=== PATIENT | female | born 1960 | race Caucasian/White ===

== ENCOUNTER 2020-03-18 13:29 | Inpatient (IN) | payer OTHER, MEDICAID ==
[2020-03-18] VITALS (12 sets, daily range): BP systolic 101–185; BP diastolic 56–91
[~2020-03-18] VITALS: Ht 157.5 cm; Wt 94.3 kg
[2020-03-18] MEDS ORDERED: TOPI100T8 PO (14:12)
[2020-03-18] MEDS ORDERED: CLON0.5T PO (14:12)
[2020-03-18] MEDS ORDERED: LEVO25TA4 PO (14:12)
[2020-03-18] MEDS ORDERED: ESCITALOPRAM OX10 MG PO (14:12)
[2020-03-18] MEDS ORDERED: GABA300C18 PO (14:12)
[2020-03-18] MEDS ORDERED: ASPI-630 PO (14:12)
[2020-03-18] MEDS ORDERED: ONDANSETRON PF 4 MG/2 ML VIAL. IVP PRN (14:15)
[2020-03-18] MEDS ORDERED: fentaNYL PF VIAL 100 MCG/2 ML VIAL IVP PRN (14:15)
[2020-03-18] MEDS ORDERED: ALBUTEROL SULFATE 2.5 MG/3 ML NEBU. NEB PRN (14:30)
[2020-03-18] MEDS ORDERED: LIDOCAINE 1% PF 2 ML VIAL. ONE (14:52)
[2020-03-18] MEDS ORDERED: IOHEXOL 300 MG/ML 100ML VIAL. ONE (14:52)
[2020-03-18] MEDS ORDERED: fentaNYL PF VIAL 100 MCG/2 ML VIAL ONE (15:21)
[2020-03-18] MEDS ORDERED: HEPARIN for IV BOLUS 10,000 UNIT/10 ML VIAL. ONE (15:21)
[2020-03-18] MEDS ORDERED: NITROGLYCERIN 200 MCG/2 ML SYRINGE FOR CATH/VASC LAB. ONE (15:21)
[2020-03-18] MEDS ORDERED: MIDAZOLAM HCL/PF 2 MG/2 ML VIAL. ONE (15:21)
[2020-03-18] MEDS ORDERED: VERAPAMIL 5 MG/2 ML VIAL. ONE (15:21)
[2020-03-18] MEDS ORDERED: fentaNYL PF VIAL 100 MCG/2 ML VIAL IV ONE (15:45)
[2020-03-18] MEDS ORDERED: IOHEXOL 300 MG/ML 100ML VIAL. IART ONE (15:45)
[2020-03-18] MEDS ORDERED: HEPARIN for IV BOLUS 10,000 UNIT/10 ML VIAL. IART ONE (15:45)
[2020-03-18] MEDS ORDERED: CONTRAST GIVEN. MC PRN (15:45)
[2020-03-18] MEDS ORDERED: LIDOCAINE 1% PF 2 ML VIAL. INJ ONE (15:45)
[2020-03-18] MEDS ORDERED: VERAPAMIL 5 MG/2 ML VIAL. IART ONE (15:45)
[2020-03-18] MEDS ORDERED: NITROGLYCERIN 200 MCG/2 ML SYRINGE FOR CATH/VASC LAB. IART ONE (15:45)
[2020-03-18] MEDS ORDERED: MIDAZOLAM HCL/PF 2 MG/2 ML VIAL. IV ONE (15:45)
--- NOTE | 2020-03-18 16:58 | CARD ---
MR#: [id number] Date of Study: 03/18/2020 Ordering Physician: UNRULY OSWALD, Referring Physician: UNRULY OSWALD, Tech: RT Amber (R) APPROVED REPORT Technologist: Palomo Link RT (R) Nurse: Kellee Chavez R.N. Procedure(s) performed: FL TIME: 3.8 MINS DOSE: 66 GYCM2 CONTRAST: 69 ML MODERATE SEDATION: 29 MINS LHC, Coronary angiography HISTORY : The patient is a 59 year-old female with a history of . INDICATION The indication(s) include : unstable angina . [facility] Clinical Frailty Scale [facility] Clinical Frailty Scale: Mildly Frail Heart Failure Heart Failure: Yes If Yes, Newly Diagnosed: No If Yes, HF Type: Diastolic If Yes, NYHA Class: Class II PROCEDURE NARRATIVE Clinical information: 59-year-old woman who presents to the hospital in the setting of unstable angina with recurrent chest pain within 1 week in the setting of prior history of hypertension, tobacco abuse. Informed consent: Written informed consent was obtained from the patient after adequate discussion of the risks and latricia efits of the procedure. Procedure details: ACCESS: The right wrist was prepped and draped in usual sterile fashion. Under 1% lidocaine local anesthesia a 6 Austrian Terumo sheath was placed in the right radial artery via the Seldinger technique. DIAGNOSTIC ANGIOGRAPHY: Right and left coronary arteries were engaged with a 6 Austrian TIG catheter. Diagnostic angiography i n multiple views were obtained. Next, a 6 Austrian pigtail catheter was placed in the left ventricle a nd a LVEDP was measured. A pullback was performed after left ventriculography. All catheters were e xchanged over J-tip guidewire. FINDINGS: ======= Aorta: 110/80 LVEDP: 15 mmHg Left ventriculogram: Ejection fraction 55% Normal wall motion without any evidence of aortic or mitral insufficiency. Coronary angiography: LM: Large caliber vessel with normal angiographic appearance LAD: Large caliber vessel with a proximal 50% stenosis. The vessel is also very tortuous D1: Small caliber vessel with normal angiographic appearance LCX: Moderate caliber non-dominant vessel with mild luminal irregularities OM1: Moderate caliber vessel with normal angiographic appearance RCA: Large caliber dominant vessel with mild luminal irregularities RPDA: Moderate caliber vessel with mild luminal irregularities. CLOSURE: At case completion the right radial sheath was removed and a Terumo radial band was applied with 11 m L of air. Hemostasis was achieved. COMPLICATIONS: No acute complications noted Conclusion 1. Normal left sided filling pressures. 2. Normal LV systolic function. EF 55% 3. One vessel CAD involving the LAD without significant obstruction. Recommendations Aggressive Medical Therapy Signed by : Unruly Oswald, Electronically Approved : 03/18/2020 16:58:06
[2020-03-18 17:16] LABS: CALCIUM 8.8 mg/dL (8.5-10.1); CREATININE 0.6 mg/dL (0.6-1.0); GFR 102.7; POTASSIUM 4.2 mmol/L (3.5-5.1)
[2020-03-18 17:24] LABS: CHOLESTEROL/HDL RATIO 2.8
[2020-03-18] MEDS ORDERED: TOPIRAMATE 100 MG TABLET. PO SCH (21:00)
[2020-03-18] MEDS ORDERED: GABAPENTIN 300 MG CAPSULE. PO SCH (21:00)
[2020-03-18] MEDS ORDERED: ATORVASTATIN CALCIUM 20 MG TABLET PO SCH (21:00)
[2020-03-19 02:50] VITALS: BP 127/49
[2020-03-19 07:00] VITALS: BP 133/62
[2020-03-19] MEDS ORDERED: LEVOTHYROXINE 25 MCG TABLET. PO SCH (07:30)
[2020-03-19] MEDS ORDERED: PANTOPRAZOLE 40 MG TABLET.DR. PO SCH (07:30)
[2020-03-19] MEDS ORDERED: clonazePAM 0.5 MG TABLET PO SCH (09:00)
[2020-03-19] MEDS ORDERED: ASPIRIN CHEWABLE 81 MG TABLET. PO SCH (09:00)
[2020-03-19] MEDS ORDERED: CITALOPRAM 20 MG TABLET. PO SCH (09:00)
--- NOTE | 2020-03-19 09:16 | NUR ---
SS following for discharge planning. SS reviewed pt chart and discussed with pt RN. Pt is from home and is currently on room air. Pt had heart cath on 03/18/2020. Discharge plan is to home when medically ready. SS will continue to follow for discharge planning.
--- NOTE | 2020-03-19 10:48 | SSS ---
ADMIT DATE: HISTORY OF PRESENT ILLNESS: The patient is a 59-year-old female patient, who was admitted twice to [facility] complaining of chest pain that is retrosternal, radiating through and through to her back. She was admitted initially and has 2 sets of cardiac enzymes that ruled out myocardial infarction. She was discharged home, only to come back with the same complaint. In the Emergency Room, she had CT angio of the chest, which showed no pulmonary emboli and no acute abnormalities seen throughout the chest to account for the patient's symptoms. The partially imaged gallbladder is distended and there is suggestion of pericholecystic edema and she did have abdominal ultrasound, which showed no evidence of gallbladder thickening or polycystic fluid. CT scan of the chest also showed that there is extensive calcification of the coronary arteries with redirection from the left anterior descending artery and therefore, she was seen in consultation by the b2b appointment setter who recommended transferring her to [facility] for cardiac catheterization. She underwent left heart cardiac catheterization and she was found to have normal left-sided filling pressure, normal left ventricular systolic function, ejection fraction 55%, one vessel coronary artery disease involving the left anterior without significant obstruction and therefore, a decision was made to treat her aggressively medically and was discharged home to follow with her primary care physician. PAST MEDICAL HISTORY: Significant for hypothyroidism, chronic obstructive pulmonary disease, and generalized osteoarthritis. FAMILY HISTORY: Unremarkable. ALLERGIES: She has no known drug allergies. MEDICATIONS: She is currently on following medications: She is on citalopram hydrobromide 20 mg once a day, clonazepam 0.25 mg once a day, aspirin 81 mg once a day, levothyroxine 25 mcg once a day, Protonix 40 mg once a day, topiramate 100 mg once a day, gabapentin 300 mg at bedtime, atorvastatin 20 mg at bedtime. FAMILY HISTORY: She has 1 sister and 2 brothers. The younger one of her brothers has leukemia, in remission. She does not know the age or the cause of of her father. Her mother at age of 59 because of complication of diabetes and COPD. SOCIAL HISTORY: She is single, never , has no children. She does smoke about half a pack a day and drinks alcohol occasionally, has not used any marijuana for a long time. She is currently on disability. PHYSICAL EXAMINATION: GENERAL: On examining her, she looked well and was clearly in no apparent respiratory distress. No pallor, jaundice, cyanosis or thyromegaly. No jugular venous distention. No lower limb edema. VITAL SIGNS: Her heart rate was 57, blood pressure was 133/62, temperature 97.7, respiratory rate was 18 and oxygen saturation was 96%. HEAD, EYES, EARS, NOSE AND THROAT: Showed normocephalic, atraumatic. NECK: Supple. HEART: Showed normal first and second heart sounds. No gallop, rub or murmur. CHEST: Clear to auscultation. No crepitation or rhonchi. ABDOMEN: Distended, soft, nontender. No guarding or rigidity. No organomegaly. All hernial orifices are intact. Bowel sounds normal. NEUROLOGIC: She was awake, alert, responding appropriately. All her cranial nerves are intact. EXTREMITIES: She moves extremities without difficulty. She ambulates without assistance or assistive devices. LABORATORY DATA: Her lab work showed her serum sodium was 138, potassium 4.2, chloride 101, bicarbonate 32, anion gap of 5, BUN 11, creatinine 0.6, estimated GFR was 102 mL per minute. Her glucose was 96, calcium was 8.8. Troponin was less than 0.017. Serum triglycerides were 42, total cholesterol 182, LDL was 109, VLDL was 8, HDL cholesterol was 65 and the ratio was 2.8. DISCHARGE MEDICATIONS: She was discharged home to continue on citalopram hydrobromide for Celexa 20 mg once a day, clonazepam 0.25 mg once a day, aspirin 81 mg once a day, levothyroxine sodium 25 mcg once a day, Protonix 40 mg once a day, topiramate 100 mg at bedtime, gabapentin 300 mg at bedtime, atorvastatin 20 mg at bedtime, albuterol 2.5 mg every 6 hours. FINAL DISCHARGE DIAGNOSES: Chest pain, atypical, acute myocardial infarction ruled out. The patient is status post cardiac catheterization, which showed basically normal left-sided filling pressures, normal left ventricular systolic function, ejection fraction 55%. She has one vessel coronary artery involving the left anterior descending without significant obstruction. The patient will be discharged home to follow with her primary care physician if she continues to have pain, she can have her hepatobiliary scan done as an outpatient. OMKAR LINDSAY MD DR: SOLIS/jeb JOB#: [id number] / [id number]
[2020-03-19 10:57] VITALS: BP 131/73
--- NOTE | 2020-03-19 11:15 | NUR ---
Discharge Note: MACEY GRULLON Discharge instructions and discharge home medications reviewed with Patient and a copy given. All questions have been answered and understanding verbalized. The following instructions and handouts were given: Chest pain, smoking cessation, tips for stoping Discontinued lines and drains: IV catheter removed intact. Patient discharged to Home with self care via wheelchair.
== END 2020-03-19 11:08 | disposition home or self-care (01) | DRG 287 ==
LOC: 2 SOUTH 13:29
PROVIDERS: ADMIT Internal Medicine; ATTEND Internal Medicine
PROC: 4A023N7 Measurement of Cardiac Sampling and Pressure, Left Heart, Percutaneous Approach (ICD-10-PCS; principal; 2020-03-18)
PROC: B2111ZZ Fluoroscopy of Multiple Coronary Arteries using Low Osmolar Contrast (ICD-10-PCS; 2020-03-18)
PROC: B2151ZZ Fluoroscopy of Left Heart using Low Osmolar Contrast (ICD-10-PCS; 2020-03-18)
DX: I25.10 Atherosclerotic heart disease of native coronary artery without angina pectoris (principal); R07.89 Other chest pain; E03.9 Hypothyroidism, unspecified; F17.210 Nicotine dependence, cigarettes, uncomplicated; J44.9 Chronic obstructive pulmonary disease, unspecified; I10 Essential (primary) hypertension; M15.9 Polyosteoarthritis, unspecified; Z80.6 Family history of leukemia; Z82.5 Family history of asthma and other chronic lower respiratory diseases; Z83.3 Family history of diabetes mellitus; Z79.899 Other long term (current) drug therapy
CPT/HCPCS: 36415; 80048; 80061; 84484; 93458; 99152; 99153; 99406; C1769; C1892; J1644; J2250; J3010; J3490; Q9967; G0378

== ENCOUNTER → 2020-05-31 | Outpatient (CLI) | payer OTHER, MEDICAID ==
[~2020-05-31] MED LIST: ASPI-630 PO; CLON0.5T PO; ESCITALOPRAM OX10 MG PO; GABA300C18 PO; LEVO25TA4 PO; TOPI100T8 PO
== END ==
LOC: LAB 14:08
PROVIDERS: ATTEND Surgery
DX: Z01.812 Encounter for preprocedural laboratory examination (principal); Z20.828 Contact with and (suspected) exposure to other viral communicable diseases; Z90.49 Acquired absence of other specified parts of digestive tract
CPT/HCPCS: U0003-CS